=== PATIENT | male | born 1970 | race Caucasian/White ===

== ENCOUNTER 2017-04-12 17:10 | Emergency (ER) | payer OTHER ==
[2017-04-12 17:59] LABS: BASOPHILS % 1.5 (0.0-1.5); EOSINOPHILS % 6.4 % (0.0-6.8); MEAN CORPUSCULAR HEMOGLOBIN 30.3 pg (28.0-34.0); MONOCYTES % 4.1 % (0.0-11.0)
[2017-04-12 18:00] LABS: eGFR (African) > 60; eGFR (Non-African) > 60
--- NOTE | 2017-04-12 18:06 | ED Physician Documentation ---
Chest Pain - HISTORIAN Historian: patient - HPI Stated Complaint: chest pain Chief Complaint: General Adult Additional Information: pt triaged as chest pain on adm lab ordered per protocol but on eval pt co int epigastric pain rel by antacids and mid to low post thoric back kpain w/ hx tramadol for low back disc disease. Onset: hours, days ago (yesterday again vague sym again but on exam its lt thoracic approx t9-10 w no radiatin) Timing: still present, better Duration: waxing, waning Last known Well Date: 04/10/17 Last Known Well Time: 08:30 Context: rest Severity: mild, moderate Quality: burning, sharp Chest Pain Radiation: no radiation (does say yesterday had discomfort lt breast are "not PAIN') Chest Pain Signs/Symptoms: denies: nausea, vomiting, diaphoresis, tachypnea, tachycardia, hypotension - ROS CONST: no problems. denies: recent illness, recent injury MS/LYMPH: none GI/: none EYES/ENT: none SKIN/ENDO: none NEURO/PSYCH: none - PAST HX HI risk factors: no pertinent history (except has meds for hi chol) DVT/PE Risk Factors: none Neuro deficit: none GI disease: GERD Surgeries/Procedures: none Allergies/Adverse Reactions: Allergies Allergy/AdvReac Type Severity Reaction Status Date / Time Penicillins Allergy Verified 04/12/17 17:58 Home Medications: Ambulatory Orders Medication Instructions Recorded Tramadol HCl [Ultram] 04/12/17 - SOCIAL HX Smoking History: non-smoker Alcohol Use: none Drug Use: none - FAMILY HX Family HX: none. denies: CAD under 55, CAD over 55 (father / mother living and well w/no heart disease) - VITAL SIGNS Vital Signs: Vital Signs Temp Pulse Resp BP Pulse Ox 97.8 F 63 16 111/76 99 04/12/17 17:20 04/12/17 17:20 04/12/17 17:20 04/12/17 17:20 04/12/17 17:20 - REVIEWED ASSESSMENTS Nursing Assessment Reviewed: Yes Vitals Reviewed: Yes ED Results Lab/Radiology - Lab Results Lab Results: Lab Results 04/12/17 04/12/17 17:50 17:50 WBC 7.30 K/ul K/ul (4.00-12.00) RBC 4.90 M/ul M/ul (3.90-5.20) Hgb 14.8 g/dL g/dL (12.0-18.0) Hct 44.1 % % (37.0-53.0) MCV 90.0 fl fl (80.0-100.0) MCH 30.3 pg pg (28.0-34.0) MCHC 33.7 g/dL g/dL (30.0-36.0) RDW 13.0 % % (11.3-14.3) Plt Count 210 K/mm3 K/mm3 (130-400) Neut % (Auto) 54.7 % % (39.0-79.0) Lymph % (Auto) 30.9 % % (16.0-50.0) [place] % (Auto) 4.1 % % (0.0-11.0) Eos % (Auto) 6.4 % % (0.0-6.8) Baso % (Auto) 1.5 (0.0-1.5) Neut # (Auto) 4.0 # k/uL # k/uL (1.4-7.7) Lymph # (Auto) 2.2 # k/uL # k/uL (0.6-4.0) [place] # (Auto) 0.3 # k/uL # k/uL (0.0-0.9) Eos # (Auto) 0.5 # k/uL # k/uL (0.0-0.6) Baso # (Auto) 0.1 # k/uL # k/uL (0.0-0.5) Reactive Lymphs % 2.4 % % (0.0-5.0) Reactive Lymphs # 0.2 # k/uL # k/uL (0.0-0.8) Sodium 142 mmol/L mmol/L (136-145) Potassium 3.8 mmol/L mmol/L (3.5-5.1) Chloride 100 mmol/L mmol/L (98-107) Carbon Dioxide 31 mmol/L H mmol/L (22-30) BUN 12 mg/dL mg/dL (9-20) Creatinine 0.90 mg/dL mg/dL (0.66-1.25) Estimated Creat Clear 115 Est GFR ( Amer) > 60 (60 - ) Est GFR (Non-Af Amer) > 60 (60 - ) Glucose 95 mg/dL mg/dL (74-106) Calcium 9.0 mg/dL mg/dL (8.4-10.2) Total Bilirubin 0.5 mg/dL mg/dL (0.2-1.3) AST 35 U/L U/L (15-46) ALT 43 U/L U/L (13-69) Alkaline Phosphatase 70 U/L U/L (38-126) Creatine Kinase 54 U/L L U/L (55-170) Total Protein 7.3 g/dL g/dL (6.3-8.2) Albumin 4.3 g/dL g/dL (3.5-5.0) - Orders Orders: ED Orders Category Date Time Status Continuous EKG monitoring Q30M Care 04/12/17 17:48 Active Continuous Pulse Oximetry Q30M Care 04/12/17 17:[address] IV Lock 1T Care 04/12/17 17:48 Active CBC/PLATELET/DIFF Routine Lab 04/12/17 17:50 Completed CMP Routine Lab 04/12/17 17:50 Completed CREATINE KINASE Routine Lab 04/12/17 17:50 Completed TROPONIN I (cTnI) Stat Lab 04/12/17 17:50 Received EKG WITH COMPARISON Stat Ther 04/12/17 17:48 Completed Chest Pain Physical Exam - EXAM General Appearance: mild distress, other (ica redproduce the back by firm pressure lt paravert area t-9/10) EENT: eye inspection normal Neck: nml inspection, no carotid bruit Respiratory: no resp. distress, chest non-tender, nml breath sounds CVS: reg. rate & rhythm, no murmur Abdomen: soft, non-tender Skin: warm/dry, normal color. No: cyanosis, diaphoresis, jaundice, mottled Extremities: non-tender, normal range of motion Neuro: oriented X3, motor nml, sensation nml, mood/affect nml Discharge Clincal Impression: structural thoracic bach pain, hx djd lumbar back-disc ds Referrals: Primary Doctor,No [Primary Care Provider] - 2 Days Condition: Good Disposition: 01 HOME, SELF-CARE Decision to Admit: NO Decision Time: 18:14
[2017-04-12 18:30] VITALS: BP 112/71
== END 2017-04-12 18:20 | disposition home or self-care (01) ==
LOC: ED 17:10
DX: M54.6 Pain in thoracic spine (principal)
CPT/HCPCS: 80053; 82550; 84484; 85025; 99282; 99283; S1016